=== PATIENT | male | born 1960 | race Caucasian/White ===

== ENCOUNTER 2018-04-13 13:58 | Inpatient (IN) | payer MEDICAID ==
[~2018-04-13] VITALS: Ht 170.2 cm; Wt 77.3 kg
[2018-04-13 14:06] VITALS: Ht 170.2 cm; Wt 77.3 kg
[2018-04-13 15:42] LABS: BASOPHIL % 0.4 % (0-2); PLATELET COUNT 314 x10^3mcL (130-400)
[2018-04-13 15:51] LABS: RED CELL DISTRIBUTION WIDTH 20.8 % (11.5-14.5)
[2018-04-13 15:55] LABS: CALCIUM 8.3 mg/dL (8.5-10.1); CARBON DIOXIDE 24.3 mmol/L (21-32); CHLORIDE SERUM 102 mmol/L (98-107); CREATININE SERUM 0.8 mg/dL (0.7-1.3); GFR1 > 60 mL/min; GLUCOSE SERUM 109 mg/dL (74-106); POTASSIUM SERUM 3.3 mmol/L (3.5-5.1); SODIUM SERUM 136 mmol/L (136-145)
[2018-04-13 16:00] LABS: ALKALINE PHOSPHATASE 85 U/L (46-116); ALT/SGPT 22 U/L (16-63); AST/SGOT 27 U/L (15-37); BILIRUBIN TOTAL 0.62 mg/dL (0.20-1.00); CHOLESTEROL 140 mg/dL (<200); HDL CHOLESTEROL 36 mg/dL (40-60); TOTAL PROTEIN, SERUM 7.1 g/dL (6.4-8.2)
[2018-04-13 16:07] LABS: ALBUMIN 2.5 g/dL (3.4-5.0)
[2018-04-13] MEDS ORDERED: AMOXICILLIN500 MG PO (16:29)
[2018-04-13] MEDS ORDERED: PEPCID20 MG PO (16:30)
[2018-04-13] MEDS ORDERED: PROCHLORPERAZIN10 MG PO (16:30)
[2018-04-13] MEDS ORDERED: DEXAMETHASONE4 MG PO (16:31)
[2018-04-13] MEDS ORDERED: FOL1 PO (16:31)
[2018-04-13 16:43] LABS: microscopic required? NO
[2018-04-13 16:52] LABS: UA SPECIFIC GRAVITY 1.015 (1.005-1.035); urine erythrocyte NEGATIVE (NEGATIVE)
[2018-04-13 17:05] LABS: AMPHETAMINE QUAL UR NONE DETECTED (See below)
[2018-04-13 17:41] LABS: T3 TOTAL 0.88 ng/mL
[2018-04-13 17:43] LABS: AMYLASE 46 U/L (25-115); CALCIUM 8.1 mg/dL (8.5-10.1); CARBON DIOXIDE 24.2 mmol/L (21-32); CHLORIDE SERUM 103 mmol/L (98-107); CHOLESTEROL 124 mg/dL (<200); CHOLESTEROL/HDL RATIO 3.6; CREATININE SERUM 0.7 mg/dL (0.7-1.3); GFR1 > 60 mL/min; GLUCOSE SERUM 87 mg/dL (74-106); HDL CHOLESTEROL 34 mg/dL (40-60); LACTIC DEHYDROGENASE (LDH) 203 U/L (100-190); LIPASE 163 IU/L (73-393); MAGNESIUM 1.7 mg/dL (1.8-2.4); PHOSPHOROUS 3.2 mg/dL (2.5-4.9); POTASSIUM SERUM 3.6 mmol/L (3.5-5.1); SODIUM SERUM 136 mmol/L (136-145); TRIGLYCERIDES 90 mg/dL (<150)
[2018-04-13 17:56] LABS: FREE T4 1.23 ng/dL (0.76-1.46); FREE THYROXINE INDEX 2.7 ug/dL (1.4-4.5); T4(THYROXINE) 8.2 ug/dL (4.7-13.3)
[2018-04-13 18:01] VITALS: BP 126/71
[2018-04-13 19:00] VITALS: BP 93/69
[2018-04-13 20:45] VITALS: BP 114/64
[2018-04-14 05:02] VITALS: BP 97/62
[2018-04-14 07:15] LABS: CALCIUM 8.2 mg/dL (8.5-10.1); CARBON DIOXIDE 25.1 mmol/L (21-32); CHLORIDE SERUM 103 mmol/L (98-107); CREATININE SERUM 0.7 mg/dL (0.7-1.3); GFR1 > 60 mL/min; GLUCOSE SERUM 89 mg/dL (74-106); MAGNESIUM 1.9 mg/dL (1.8-2.4); PHOSPHOROUS 3.6 mg/dL (2.5-4.9); POTASSIUM SERUM 3.3 mmol/L (3.5-5.1); SODIUM SERUM 138 mmol/L (136-145)
[2018-04-14 07:41] LABS: BASOPHIL % 0.4 % (0-2); PLATELET COUNT 284 x10^3mcL (130-400)
[2018-04-14 07:49] LABS: RED CELL DISTRIBUTION WIDTH 20.6 % (11.5-14.5)
[2018-04-14 07:52] LABS: rbc morphology (normal/abnorm) ABNORMAL (NORMAL)
[2018-04-14 08:00] VITALS: BP 118/81
[2018-04-14 09:22] VITALS: BP 118/81
[2018-04-14 13:50] VITALS: BP 120/80
[2018-04-14 18:13] VITALS: BP 117/78
[2018-04-14 20:46] VITALS: BP 112/62
[2018-04-15 05:22] VITALS: BP 106/56
[2018-04-15 06:33] LABS: BASOPHIL % 0.2 % (0-2); PLATELET COUNT 278 x10^3mcL (130-400)
[2018-04-15 06:41] LABS: RED CELL DISTRIBUTION WIDTH 20.4 % (11.5-14.5)
[2018-04-15 06:45] LABS: CALCIUM 8.6 mg/dL (8.5-10.1); CHLORIDE SERUM 105 mmol/L (98-107); CREATININE SERUM 0.7 mg/dL (0.7-1.3); GFR1 > 60 mL/min; GLUCOSE SERUM 142 mg/dL (74-106); POTASSIUM SERUM 4.2 mmol/L (3.5-5.1); SODIUM SERUM 139 mmol/L (136-145)
[2018-04-15 08:16] LABS: rbc morphology (normal/abnorm) ABNORMAL (NORMAL)
[2018-04-15 09:39] VITALS: BP 107/67
[2018-04-15 12:38] VITALS: BP 116/68
[2018-04-15 16:52] VITALS: BP 115/68
[2018-04-15 20:35] VITALS: BP 107/68
[2018-04-16 06:00] VITALS: BP 96/57
[2018-04-16 06:11] LABS: BASOPHIL % 0.3 % (0-2); PLATELET COUNT 284 x10^3mcL (130-400)
[2018-04-16 06:29] LABS: CALCIUM 8.5 mg/dL (8.5-10.1); CARBON DIOXIDE 26.2 mmol/L (21-32); CHLORIDE SERUM 107 mmol/L (98-107); CREATININE SERUM 0.8 mg/dL (0.7-1.3); GFR1 > 60 mL/min; GLUCOSE SERUM 112 mg/dL (74-106); MAGNESIUM 2.1 mg/dL (1.8-2.4); PHOSPHOROUS 3.4 mg/dL (2.5-4.9); POTASSIUM SERUM 3.9 mmol/L (3.5-5.1); SODIUM SERUM 139 mmol/L (136-145)
[2018-04-16 07:38] LABS: RED CELL DISTRIBUTION WIDTH 21.4 % (11.5-14.5)
[2018-04-16 08:44] VITALS: BP 99/54
[2018-04-16 09:12] LABS: burr cell (echinocyte) 1+; rbc morphology (normal/abnorm) ABNORMAL (NORMAL); tear drop cell (dacryocyte) 1+
[2018-04-16] MEDS ORDERED: AMOXICILLIN/CLA1 TA6 PO (09:21)
[2018-04-16] MEDS ORDERED: LEVAQUIN750 MG PO (09:22)
[2018-04-16 10:26] VITALS: BP 99/54
== END 2018-04-16 13:30 | disposition home or self-care (01) | DRG 133 ==
LOC: ED 13:58 → DU 16:33
PROVIDERS: Emergency Medicine; Family Medicine
DX: J96.21 Acute and chronic respiratory failure with hypoxia (principal); N17.0 Acute kidney failure with tubular necrosis; E43 Unspecified severe protein-calorie malnutrition; J18.8 Other pneumonia, unspecified organism; C34.11 Malignant neoplasm of upper lobe, right bronchus or lung; D64.9 Anemia, unspecified; J98.11 Atelectasis; Z68.26 Body mass index [BMI] 26.0-26.9, adult; Z79.899 Other long term (current) drug therapy; Z87.891 Personal history of nicotine dependence
CPT/HCPCS: 36600; 83880; 84439; 85378; J0696; J1956; J2543; J3490; J7030; J7620; J8540; Q0092; Q9967

== ENCOUNTER 2019-08-08 12:20 | Inpatient (IN) | payer MEDICAID ==
[~2019-08-08] VITALS: Ht 170.2 cm; Wt 61.2 kg
[~2019-08-08 12:20] MED LIST: AMOXICILLIN/CLA1 TA6 PO; AMOXICILLIN500 MG PO; DEXAMETHASONE4 MG PO; FOL1 PO; LEVAQUIN750 MG PO; PEPCID20 MG PO; PROCHLORPERAZIN10 MG PO
[2019-08-08 13:09] LABS: PLATELET COUNT 176 x10^3mcL (130-400)
[2019-08-08 13:17] LABS: BASOPHIL % 0 % (0-2); CALCIUM 8.1 mg/dL (8.5-10.1); CARBON DIOXIDE 29.3 mmol/L (21-32); CHLORIDE SERUM 95 mmol/L (98-107); CREATININE SERUM 0.8 mg/dL (0.7-1.3); GFR1 > 60 mL/min; GLUCOSE SERUM 91 mg/dL (74-106); POTASSIUM SERUM 3.5 mmol/L (3.5-5.1); RED CELL DISTRIBUTION WIDTH 18.9 % (11.5-14.5); SODIUM SERUM 131 mmol/L (136-145)
[2019-08-08 13:27] LABS: T3 TOTAL 0.99 ng/mL
[2019-08-08 13:30] LABS: ALKALINE PHOSPHATASE 101 U/L (46-116); ALT/SGPT 44 U/L (16-63); AST/SGOT 62 U/L (15-37); BILIRUBIN TOTAL 0.8 mg/dL (0.20-1.00); C REACTIVE PROTEIN 0.7 mg/dL (<=0.9); TOTAL PROTEIN, SERUM 8.4 g/dL (6.4-8.2)
[2019-08-08 13:47] LABS: CK-MB 0.7 ng/mL (0-3.6)
[2019-08-08 13:50] LABS: FREE T4 1.35 ng/dL (0.76-1.46); FREE THYROXINE INDEX 3.8 ug/dL (1.4-4.5); T4(THYROXINE) 10.5 ug/dL (4.7-13.3)
[2019-08-08 14:07] LABS: ERYTHROCYTE SED RATE 45 mm/hr (0-20)
[2019-08-08 14:16] LABS: microscopic required? NO
[2019-08-08 14:29] LABS: UA SPECIFIC GRAVITY 1.015 (1.005-1.035); urine erythrocyte NEGATIVE (NEGATIVE)
[2019-08-08 17:45] LABS: MAGNESIUM 2.1 mg/dL (1.8-2.4); PHOSPHOROUS 2.5 mg/dL (2.5-4.9)
[2019-08-08 18:03] VITALS: BP 117/62
[2019-08-08 18:07] VITALS: Ht 170.2 cm; Wt 61.2 kg
[2019-08-08 20:15] VITALS: BP 109/51
[2019-08-09 06:11] LABS: PLATELET COUNT 140 x10^3mcL (130-400)
[2019-08-09 06:17] LABS: CALCIUM 7.9 mg/dL (8.5-10.1); CARBON DIOXIDE 31.3 mmol/L (21-32); CHLORIDE SERUM 98 mmol/L (98-107); CREATININE SERUM 0.7 mg/dL (0.7-1.3); GFR1 > 60 mL/min; GLUCOSE SERUM 89 mg/dL (74-106); MAGNESIUM 1.9 mg/dL (1.8-2.4); PHOSPHOROUS 3.2 mg/dL (2.5-4.9); POTASSIUM SERUM 3.4 mmol/L (3.5-5.1); SODIUM SERUM 135 mmol/L (136-145)
[2019-08-09 07:13] LABS: BASOPHIL % 0 % (0-2); RED CELL DISTRIBUTION WIDTH 19.1 % (11.5-14.5)
[2019-08-09 08:03] VITALS: BP 108/64
[2019-08-09 12:12] VITALS: BP 106/61
[2019-08-09 16:09] VITALS: BP 106/57
[2019-08-09 19:34] VITALS: BP 97/57
[2019-08-10 04:29] VITALS: BP 92/50
[2019-08-10 06:42] LABS: CALCIUM 7.9 mg/dL (8.5-10.1); CARBON DIOXIDE 26.3 mmol/L (21-32); CHLORIDE SERUM 98 mmol/L (98-107); CREATININE SERUM 0.7 mg/dL (0.7-1.3); GFR1 > 60 mL/min; GLUCOSE SERUM 144 mg/dL (74-106); PHOSPHOROUS 3.1 mg/dL (2.5-4.9); POTASSIUM SERUM 4.1 mmol/L (3.5-5.1); SODIUM SERUM 132 mmol/L (136-145)
[2019-08-10 07:13] LABS: BASOPHIL % 0 % (0-2); PLATELET COUNT 121 x10^3mcL (130-400); RED CELL DISTRIBUTION WIDTH 18.3 % (11.5-14.5)
[2019-08-10 08:14] VITALS: BP 94/54
[2019-08-10] MEDS ORDERED: NYSTATIN100000 U/M PO (11:41)
[2019-08-10] MEDS ORDERED: MYLIIL PO (11:42)
[2019-08-10] MEDS ORDERED: LIDOCAINE HCL100 ML PO (11:43)
[2019-08-10 11:57] VITALS: BP 98/69
== END 2019-08-10 13:23 | disposition home or self-care (01) | DRG 243 ==
LOC: ED 12:20 → MU 16:51 → DU 16:51 → MU 17:38 → DU 17:52
PROVIDERS: Specialist; ADMIT Internal Medicine
DX: K20.8 Other esophagitis (principal); J96.00 Acute respiratory failure, unspecified whether with hypoxia or hypercapnia; E44.0 Moderate protein-calorie malnutrition; C34.91 Malignant neoplasm of unspecified part of right bronchus or lung; E87.8 Other disorders of electrolyte and fluid balance, not elsewhere classified; E87.1 Hypo-osmolality and hyponatremia; R13.10 Dysphagia, unspecified; E83.51 Hypocalcemia; E86.0 Dehydration; J44.9 Chronic obstructive pulmonary disease, unspecified; D64.9 Anemia, unspecified; Z79.899 Other long term (current) drug therapy; Z68.21 Body mass index [BMI] 21.0-21.9, adult; Y84.2 Radiological procedure and radiotherapy as the cause of abnormal reaction of the patient, or of later complication, without mention of misadventure at the time of the procedure; Y92.538 Other ambulatory health services establishments as the place of occurrence of the external cause
CPT/HCPCS: 36600; 84439; C9113; G0378; J1100; J2270; J2543; J2765; J3010; J7042; J7620; Q0092; Q9967